=== PATIENT | male | born 1980 | race African-American/Black ===

== ENCOUNTER 2019-06-07 10:37 | Emergency (ER) | payer MEDICAID ==
[~2019-06-07] VITALS: Ht 165.1 cm; Wt 64.0 kg
[2019-06-07] MEDS ORDERED: ASPIRIN 81MG TABLET PO ONE (11:15)
[2019-06-07 11:53] LABS: CHLORIDE 106 mEq/L (98-107)
[2019-06-07 12:00] LABS: BASOPHILS % 1.2 % (0.0-2.0); EOSINOPHILS % 1.3 % (0.0-5.0); HEMATOCRIT. 43.4 % (42.0-52.0); HEMOGLOBIN. 14.4 g/dL (14.0-18.0); MEAN CORPUSCULAR HEMOGLOBIN 29.3 pg (28.0-32.0); MEAN CORPUSCULAR VOLUME 88.6 fL (80.0-94.0); MEAN PLATELET VOLUME 10.7 fl (7.4-10.4); MONOCYTES % 9.3 % (2.0-8.0); NEUTROPHILS % 38.2 % (40.0-76.0); PLATELET 179 x1000/uL (130-400); RED CELL DISTRIBUTION WIDTH 14.2 % (11.6-14.6)
[2019-06-07 13:38] VITALS: BP 111/62
== END 2019-06-07 13:45 | disposition home or self-care (01) ==
LOC: ER 11:18
DX: R07.89 Other chest pain (principal)
CPT/HCPCS: 36415; 71045; 84484; 93005; 99284